=== PATIENT | female | born 1975 | race Caucasian/White ===

== ENCOUNTER 2018-03-09 06:32 | Day surgery (SDC) | payer OTHER, SELFPAY ==
[2018-02-19 14:48] VITALS: BMI 28.1
[2018-03-09] VITALS (10 sets, daily range): BP systolic 99–126; BP diastolic 67–84; PULSE 68–89; RESP 10–18; TEMP 36–36.6; O2SAT 95–100; BMI 28.1
--- NOTE | 2018-03-09 | PATH_ITS ---
[facility] Accession Number: [id number] . 01 Material submitted: . RIGHT FALLOPIAN TUBE . 02 Diagnosis: Right Fallopian Tube, Right Salpingectomy: Segment of fimbriated fallopian tube with associated adhesions, nonspecific. Negative for atypia and malignancy. MRV/03/14/2018 . 02 Electronically signed: . Landy Flores MD, Pathologist NPI- [id number] . 01 Gross description: . Received in formalin, labeled right fallopian tube, is a fimbriated fallopian tube (length-2.8 cm, diameter-0.6 cm) with calixto-pink smooth shiny serosa and a calixto unremarkable lumen. Section code: (A1) liability claims representative serial sections; (A2) fimbria, bivalved, entirely submitted. ([id number]) /MRV . 02 Pathologist provided ICD-10: Z40.03 . 02 CPT . 889279 Performed at: 01 [facility] [address] [facility], [place], [place] [id number] MD Darius Yarbrough MD Phone: [phone] Performed at: 02 [facility] [address] [place], [place] [id number] MD Saurav Ma MD Phone: [phone]
[2018-03-09] MEDS: LACTATED RINGERS 1,000 ML 42 ML IV (07:45)
--- NOTE | 2018-03-09 07:45 | PM.PREOP ---
Pre-operative Note Interval Note Pre-op Check: Yes History & Physical exam performed today by Physician Changes: No
[2018-03-09] MEDS: CEFAZOLIN 2 GM/100 ML FROZ.PIGGY IV (07:50)
--- NOTE | 2018-03-09 08:12 | SUR.OPER ---
Lithotomy on padded OR bed, head on pillow, right arm secured on padded arm boards at <90 degrees abduction, left arm padded and tucked. Legs secured in padded yellow fins stirrups.
[2018-03-09] MEDS: BUPIVACAINE 0.5% W/ EPI (PF) VIAL 30 ML INJ (08:30)
[2018-03-09] MEDS: SODIUM CHLORIDE 0.9% 9 ML, TRIAMCINOLONE 10 MG INJ (08:31)
--- NOTE | 2018-03-09 09:24 | P.OP_ITS ---
Procedure: Procedures Operation Date: 03/09/18 07:45 Actual Procedures Side Surgeon p Dx Laparoscopy-,Lysis of Adhesions-Revision of Keliod Scar-Right Salpingectomy Caroline Acosta MD Diagnostic laparoscopy with lysis of adhesions, right salpingectomy and revision of keloid scar Indications: History of endometriosis Pelvic pain Surgeon: Caroline Acosta Anesthesia Type: General and Local Operative Notes Findings: Uterus absent Right ovary and tube normal Normal appendix Normal gallbladder and liver Left ovary and tube could not be visualized due to overlying: Adhesion between the left colon and vaginal cuff Closure Type: primary Specimen(s): right tube Applied: catheter (In and out) Estimated blood loss (mL): 20 Blood products transfused: none Procedure in detail: After informed consent was obtained, the patient was taken to the operating room where she was placed in the dorsal supine position. After adequate general endotracheal anesthesia was achieved, she was placed in the dorsal lithotomy position, and prepped and draped in the usual sterile fashion. A moistened sponge stick was placed into the vagina. Attention was then turned to the abdomen where 6 cc of 0.5% Marcaine with epinephrine were injected in the umbilical fold. A 5 mm incision was made. The Veress needle was placed into the peritoneal cavity, and its placement confirmed by aspiration and drop test. The abdominal cavity was insufflated with 3.2 L of CO2. The Veress needle was removed and a 5 mm trocar was placed without difficulty. Initial inspection of the abdomen and pelvis revealed the findings noted above. A 2nd incision was made after 5 cc of 0.5% Marcaine with epinephrine were injected just above the pubic symphysis, through the previous Pfannenstiel incision. A 5 mm trocar was placed under direct visualization. The probe was used to identify the right tube and ovary. They both appeared normal. The appendix was normal. Gallbladder and liver were normal. A 3rd incision was made to the right of midline midway between the pubic symphysis number like us after 6 cc of 0.5% Marcaine with epinephrine were injected. A 3rd 5 mm trocar was placed under direct visualization. The probe was used to move the colon out of the way and the left tube and ovary were unable to be visualized. The colon that was stuck to the vaginal cuff was grasped with an atraumatic grasper. Using the scissors with cautery it was dissected away from the vaginal cuff. No bleeding was noted. The right tube was grasped with an atraumatic grasper. Using the scissors with cautery the tube was removed without difficulty. No bleeding was noted. The tube was removed through 1 of the 5 mm trocars. The pelvis and right ovary were irrigated. There was no bleeding noted. The instruments were removed from the abdomen. The CO2 was allowed to escape. The 5 mm trocars were removed. The right lateral and umbilical incisions were closed with 4 0 undyed Vicryl in a subcuticular fashion. Steri-Strips, 2 x 2, and op sites were placed. Attention was then turned to the old Pfannenstiel incision with a keloid. This was excised in an elliptical fashion using a 10. Blade. 10 cc of local were injected prior to the excision. This was carried down to the subcutaneous layer. The subcutaneous layer was cauterized with the Bovie for hemostasis. The incision was copiously irrigated with warm normal saline. The subcutaneous layer was reapproximated with 8 simple interrupted sutures with 3 0 Vicryl. The skin was closed with 4 0 undyed Vicryl in a subcuticular fashion. Mastisol, Steri-Strips , and an Aquacel dressing were placed. The moistened sponge stick was removed from the vagina. Sponge, lap, and instrument counts were correct x2. The patient tolerated the procedure well, and was taken to PACU in stable condition. Complications: none Post-operative Condition: stable Disposition: PACU Plan for aftercare: Home after recovery
--- NOTE | 2018-03-09 09:33 | SUR.PHASEI ---
Two additional dressings on abd observed to be c/d/i.
[2018-03-09] MEDS: ONDANSETRON 4 MG/2 ML INJ IV (10:07)
[2018-03-09] MEDS: METOCLOPRAMIDE 10 MG/2 ML INJ IV (10:20)
== END 2018-03-09 11:40 | disposition home or self-care (01) ==
PROVIDERS: PCP Nurse Practitioner; Visit Provider Obstetrics & Gynecology
PROC: (CPT 49320; principal; 2018-03-09 07:45)
DX: N80.9 Endometriosis, unspecified (principal); Z87.42 Personal history of other diseases of the female genital tract; L91.0 Hypertrophic scar; K66.0 Peritoneal adhesions (postprocedural) (postinfection)
CPT/HCPCS: 58661; 11406; J0330; J0690; J1100; J1885; J2250; J2405; J2704; J2765; J3010; J3301

== ENCOUNTER → 2018-03-29 16:02 | Outpatient (CLI) | payer OTHER, SELFPAY | PROVIDERS: PCP Nurse Practitioner; Visit Provider Specialist | DX: T81.89XA Other complications of procedures, not elsewhere classified, initial encounter (principal) | CPT/HCPCS: 87070; 87075; 87077; 87147; 87186; 87205 ==

== ENCOUNTER → 2020-04-12 09:54 | Outpatient (CLI) | payer OTHER, SELFPAY ==
[2020-04-13 09:41] LABS: COVID19 Sendout Not Detected (Not Detect)
== END ==
PROVIDERS: PCP Nurse Practitioner; Visit Provider Nurse Practitioner
DX: Z11.59 Encounter for screening for other viral diseases (principal)
CPT/HCPCS: 87635

== ENCOUNTER 2020-04-15 09:50 | Day surgery (SDC) | payer OTHER, SELFPAY ==
--- NOTE | 2020-04-15 | PATH_ITS ---
[facility] Accession Number: [id number] . 01 Material submitted: . PART A: small bowel - TERMINAL ILEUM BX PART B: colon - R COLON BX X3 PART C: colon - L COLON BX X3 . 02 Diagnosis: A. Terminal Ileum, Biopsy: Small bowel mucosa with no diagnostic abnormality. Negative for active inflammation, dysplasia and malignancy. . B-C. Right Colon, Left Colon, Biopsies: Colonic mucosa with no diagnostic abnormality. Negative for active, chronic, and microscopic colitis. Negative for dysplasia and malignancy. . [facility] 04/17/2020 1633 Local . 02 Electronically signed: . Patrizia Tang MD, Pathologist NPI- [id number] . 01 Gross description: . Part A: TERMINAL ILEUM BX: Received in formalin are 2 fragment(s) of calixto, soft tissue measuring 0.7 x 0.2 x 0.1 cm to 0.3 x 0.2 x 0.1 cm submitted entirely in 1 cassette(s) Part B: R COLON BX X3: Received in formalin are 5 fragment(s) of calixto, soft tissue measuring 0.5 x 0.5 x 0.1 cm to 0.2 x 0.1 x 0.2 cm submitted entirely in 1 cassette(s) Part C: L COLON BX X3: Received in formalin are 6 fragment(s) of calixto, soft tissue measuring 0.4 x 0.3 x 0.2 cm to 0.3 x 0.2 x 0.1 cm submitted entirely in 1 cassette(s) /QBJ 04/16/2020 1005 Local . 02 Pathologist provided ICD-10: R10.9 . 02 CPT . 053082, 285468, 514870 Performed at: 01 [facility] [address] [place] [address], [place], [place] [id number] MD Darius Yarbrough MD Phone: [phone] Performed at: 02 [facility] [address] [place], [place] [id number] MD Patrizia Tang MD Phone: [phone]
--- NOTE | 2020-04-15 08:00 | PM.HP.1 ---
History of Present Illness History of Present Illness Date Patient Seen: 04/15/20 Chief complaint: COLONOSCOPY Narrative: 45-year-old female with a history of celiac disease who I had seen in February 2020 and is now here for further evaluation of changes in bowel habit. Patient History Medical History (Updated 02/19/18 @ 14:52 by Emily Dukes RN) Endometriosis (Acute ~2007) Keloid scar (Acute) Surgical History (Updated 03/16/18 @ 15:55 by Briana Goldsmith MA) H/O: (Acute) History of bilateral tubal ligation (Acute) History of hysterectomy (Acute ~2009) S/P laparoscopic procedure (Resolved ~03/09/18) Family & Social History Social History: household members spouse Tobacco & Substance use: Smoking Status Never smoker Meds Home Medications and Allergies Home Medications Medication Instructions Recorded Confirmed Type ferrous sulfate 325 mg (65 mg 325 mg PO DAILY tab 02/07/18 04/16/18 History iron) tablet loratadine 5 mg/5 mL oral solution 5 mg PO ONCE 02/07/18 04/16/18 History omeprazole 40 mg capsule,delayed 40 mg PO DAILY 02/07/18 04/16/18 History release CMP PracaSil See Rx Instructions .ROUTE 05/02/18 Rx .COMPLEX #100 gram Allergies Allergy/AdvReac Type Severity Reaction Status Date / Time Sulfa (Sulfonamide Allergy Intermediate Hives Verified 04/15/20 10:08 Antibiotics) fluticasone [From Flonase] Allergy Verified 04/15/20 10:08 terbutaline Allergy Verified 04/15/20 10:08 morphine AdvReac Mild Rash Verified 04/15/20 10:08 Exam Narrative Exam Narrative: General: Patient is well developed, not in apparent distress Cardiovascular: Regular rate and rhythm, no murmurs, rubs, or gallops; no evidence of edema; no palpable abdominal aortic aneurysm Gastrointestinal: Normoactive bowel sounds, soft, nontender, nondistended, no rebound tenderness, no hepatosplenomegaly, no evidence of hernia Assessment & Plan Assessment & Plan narrative: 45-year-old female with here for further evaluation of changes in bowel habits by means of colonoscopy Regarding the procedure(s), the risks and potential complications, benefits, and alternatives (including not doing the procedure) were discussed with the patient. The risks include but are not limited to bleeding, splenic injury, infection, perforation which may require surgical intervention, missed lesions, and adverse reactions to sedative medicines. After a question and answer period, the patient agreed to proceed with the procedure(s) and gives informed consent.
[2020-04-15] MEDS: SODIUM CHLORIDE 0.9% 1,000 ML 70 ML IV (10:09)
[2020-04-15 10:11] VITALS: BP 123/70; PULSE 90; RESP 16; TEMP 37; O2SAT 100; BMI 25.5
--- NOTE | 2020-04-15 10:40 | PM.OP.ENDO ---
Operative Date/Time/Diagnoses Date of procedure: 04/15/20 Procedure Notes Procedure in detail: Surgeon: Torres Britton MD Procedure: Colonoscopy with biopsy Preoperative diagnosis: Change in bowel habits Postoperative diagnosis: Normal visualized colon and terminal ileum mucosa; grade 1 internal hemorrhoids Medications: Conscious sedation using 7 mg IV of Midazolam and 150 mcg IV of Fentanyl Preanesthesia Assessment An H and P was performed/updated and the Px?s ASA class is 2. The procedure was discussed in detail with the patient. The potential risks and complications including infection, bleeding, missed lesions, perforation, need for surgery in case of perforation, prolonged hospital stay, and were explained. A brief question and answer period was allotted and once all questions were answered, informed consent was obtained. The patient was brought back to the procedure room and placed on standard monitoring. The patient?s vital signs were monitored continuously throughout the entire procedure. Prior to starting, a timeout was performed to confirm the patient?s identity, allergies, medications, and procedure. Procedure in detail The patient was placed in left lateral decubitus position and once adequate sedation was obtained a WARREN was performed. The digital rectal examination did not reveal any palpable lesions. The tip of the colonoscope was placed in the anal canal and advanced without difficulty all the way to the cecum which was identified by the appendiceal orifice and the ileocecal valve. The terminal ileum was intubated to a distance of 5 cm from the ileocecal bowel. The mucosa appeared normal. Biopsies were taken with minimal bleeding. The colonoscope was brought back to the cecum and careful examination of all olivares of the colon was performed with irrigation of any residual stool. The colonic mucosa appeared normal throughout the entire colon. Biopsies were taken from the right and left colon to rule out microscopic colitis. Bleeding was minimal from the biopsies Retroflexion was performed in the rectum which revealed grade 1 internal hemorrhoids The patient tolerated the procedure well and will be brought back to the recovery area to be discharged once criteria are met. The prep was judged to be good and adequate to identify polyps less than 5 mm. The withdrawal time was 8 minutes. The total physician intraservice time was 14 minutes. Complications There were no complications and estimated blood loss was minimal. Recommendations: Consider starting FODMAP diet Change probiotics to a different bacteria preparation and continue daily for 1-2 months Consider starting Citrucel powder daily if the FODMAP diet and probiotics do not improve her symptoms Continue outPx medications Follow up pathology results Repeat colonoscopy at age 50 for colon cancer screening Call our office ([facility]) to schedule follow-up with me in 2 months An emergency contact number was given to the patient for any complications related to the procedure
[2020-04-15] MEDS: MIDAZOLAM 5 MG/5 ML VIAL IV (10:46)
[2020-04-15] MEDS: fentaNYL 250 MCG/5 ML INJ IV (10:46)
[2020-04-15 11:05] VITALS: BP 114/60; PULSE 88; RESP 13; TEMP 36.6; O2SAT 95
[2020-04-15 11:11] VITALS: BP 112/61; PULSE 83; RESP 11; O2SAT 97
[2020-04-15 11:15] VITALS: BP 121/77; PULSE 81; RESP 11; O2SAT 100
[2020-04-15 11:20] VITALS: BP 117/69; PULSE 78; RESP 12; TEMP 36.8; O2SAT 100
--- NOTE | 2020-04-15 11:26 | SUR.PHASEI ---
Report to Ernst Greene, pt transferred to pacu 2 in stable condition
[2020-04-15 11:30] VITALS: BP 121/70; PULSE 90; RESP 16; TEMP 36.7; O2SAT 98
== END 2020-04-15 11:51 | disposition home or self-care (01) ==
PROVIDERS: PCP Nurse Practitioner; Referring Provider Internal Medicine Gastroenterology; Visit Provider Internal Medicine Gastroenterology
PROC: 0DJD8ZZ Inspection of Lower Intestinal Tract, Via Natural or Artificial Opening Endoscopic (ICD-10-PCS; CPT 45378; principal; 2020-04-15 11:00)
DX: R19.4 Change in bowel habit (principal); K90.0 Celiac disease; K64.0 First degree hemorrhoids
CPT/HCPCS: 45380; J2250; J3010

== ENCOUNTER 2021-09-17 18:31 | Emergency (ER) | payer OTHER, SELFPAY ==
[2021-09-17 18:38] VITALS: BP 121/59; PULSE 91; RESP 18; TEMP 36.9; O2SAT 96; BMI 24.0
[2021-09-17 19:29] LABS: Add Manual Diff / Slide Review NO; Basophils Absolute Auto 100 /uL (0-100); Eosinophils Absolute Auto 0 /uL (0-450); Eosinophils Percent Auto 0.4 % (2-4); Hematocrit 45.7 % (36-46); Hemoglobin 15.2 g/dL (12.0-16.0); Lymphocytes Absolute Auto 1800 /uL (1100-4500); Lymphocytes Percent Auto 15.6 % (25-40); Mean Corpuscular HGB Conc 33.3 % (30-36); Mean Corpuscular Hemoglobin 29.1 PG (26-34); Mean Corpuscular Volume 87.4 fL (80-100); Monocytes Absolute Auto 700 /uL (0-900); Monocytes Percent Auto 6.3 % (3-14); Neutrophils Absolute Auto 8800 /uL (1500-7000); Neutrophils Percent Auto 76.7 % (50-75); Platelet Count 238 X10^3/uL (150-400); Red Blood Cell Count 5.23 X10^6/uL (4.0-5.2); Red Cell Distribution Width 12.9 % (11.6-14.8); White Blood Cell Count 11.4 X10^3/uL (4.5-11.0)
--- NOTE | 2021-09-17 19:36 | ED_ITS ---
HPI - General Adult General Chief complaint: Abdominal Pain Stated complaint: Diverticulitis Time Seen by Provider: 09/17/21 19:22 Source: patient Mode of arrival: Ambulatory History of Present Illness HPI narrative: Patient is a 46-year-old female. She has had a total hysterectomy secondary to endometriosis. Over the past 24-36 hours she has developed lower abdominal discomfort. She describes it as both sides but more so on the right than the left. Some nausea but no vomiting. No fevers. She has had urinary tract infections and kidney infections in the past. She went to an outside walk-in clinic where she was evaluated. A urinalysis was performed and was reported to be unremarkable. She was sent to the emergency department for further diagnostic imaging secondary to lack of definitive etiology with a workup up to this point. She did receive Toradol prior to arrival. Upon arrival she states that her symptoms have improved after that medication. She denies urinary symptoms. No change in bowel habits. Related Data Home Medications Medication Instructions Recorded Confirmed ferrous sulfate 325 mg (65 mg 325 mg PO DAILY tab 02/07/18 04/16/18 iron) tablet (Feosol) loratadine 5 mg/5 mL oral solution 5 mg PO ONCE 02/07/18 04/16/18 (Claritin) omeprazole 40 mg capsule,delayed 40 mg PO DAILY 02/07/18 04/16/18 release Previous Rx's Medication Instructions Recorded CMP PracaSil See Rx Instructions .ROUTE 05/02/18 .COMPLEX #100 gram Allergies Allergy/AdvReac Type Severity Reaction Status Date / Time Sulfa (Sulfonamide Allergy Intermediate Hives Verified 09/17/21 18:46 Antibiotics) fluticasone [From Flonase] Allergy Verified 09/17/21 18:46 terbutaline Allergy Verified 09/17/21 18:46 morphine AdvReac Mild Rash Verified 09/17/21 18:46 Review of Systems Constitutional Constitutional: Denies fever(s) Cardiovascular Cardiovascular: Denies chest pain and Denies dyspnea Respiratory Respiratory: Denies dyspnea Gastrointestinal Gastrointestinal: Reports abdominal pain, Denies change in bowel habits, Reports nausea and Denies vomiting Genitourinary Genitourinary: Denies dysuria Musculoskeletal Musculoskeletal: Reports system reviewed and no additional complaints, except as documented Integumentary/Breasts Skin/Breast: Reports system reviewed and no additional complaints, except as documented Hematologic/Lymphatic On Anticoagulants: No Patient History Medical History Endometriosis (~2007) Keloid scar Surgical History H/O: History of bilateral tubal ligation History of hysterectomy (~2009) S/P laparoscopic procedure (~03/09/18) Social History household members: spouse Smoking Status: Never smoker Smoking Status: Never smoker alcohol intake frequency: holidays/special occasions only Substance Use Type: does not use Exam Initial Vital Signs Initial Vital Signs: Vital Signs Temperature 98.4 F 09/17/21 18:38 Pulse Rate 91 H 09/17/21 18:38 Respiratory Rate 18 09/17/21 18:38 Blood Pressure 121/59 L 09/17/21 18:38 Pulse Oximetry 96 09/17/21 18:38 Const General: cooperative and healthy appearing HENMT Head: normal to inspection and normocephalic Resp Effort & Inspection: normal respiratory effort Auscultation: clear to auscultation bilaterally Cardio Rate: regular rate Rhythm: regular rhythm GI Inspection: normal to inspection and non-distended Palpation: soft, No firm, No guarding, No rigid and tender Back/Spine/Pelvis Back: No CVA tenderness Skin General: no rashes or lesions noted Neuro General: patient alert, patient awake, patient oriented x3 and moves all extremities Speech: speech normal Extrem General: normal to inspection and capillary refill normal Psych Appearance: grossly normal and well kempt Course Orders Ordered: ED Orders 09/17/21 19:37 CT abdomen pelvis w con Stat 09/17/21 20:54 US pelvic complete Stat Discontinued Medications Sodium Chloride (Normal Saline 0.9%) 1,000 mls @ 1,000 mls/hr IV BOLUS ONE Stop: 09/17/21 20:36 Last Admin: 09/17/21 20:22 Dose: 1,000 mls/hr Documented by: NESSA Vital Signs Vital signs: Vital Signs - 8 hr 09/17/21 22:43 09/17/21 22:44 Pulse Rate 65 66 Respiratory Rate 16 Blood Pressure 122/66 Pulse Oximetry 99 99 Medical Decision Making Lab Data Lab results reviewed: Yes I reviewed the patient's lab results. Result diagrams: 09/17/21 19:03 09/17/21 19:03 Labs: Lab Results 09/17/21 09/17/21 Range/Units 19:03 19:03 WBC 11.4 H (4.5-11.0) X10^3/uL RBC 5.23 H (4.0-5.2) X10^6/uL Hgb 15.2 (12.0-16.0) g/dL Hct 45.7 (36-46) % MCV 87.4 (80-100) fL MCH 29.1 (26-34) PG MCHC 33.3 (30-36) % RDW 12.9 (11.6-14.8) % Plt Count 238 (150-400) X10^3/uL Neut % (Auto) 76.7 H (50-75) % Lymph % (Auto) 15.6 L (25-40) % Campbell % (Auto) 6.3 (3-14) % Eos % (Auto) 0.4 L (2-4) % Baso % (Auto) 1.0 (0-2) % Neut # (Auto) 8800 H (5279-4294) /uL Lymph # (Auto) 1800 (0755-6841) /uL Campbell # (Auto) 700 (0-900) /uL Eos # (Auto) 0 (0-450) /uL Baso # (Auto) 100 (0-100) /uL Sodium 135 L (137-145) mmol/L Potassium 3.6 (3.4-5.1) mmol/L Chloride 104 (98-107) mmol/L Carbon Dioxide 26 (22-32) mmol/L BUN 12 (7-17) mg/dL Creatinine 0.94 (0.52-1.04) mg/dL Estimated GFR > 60.0 (>60) mL/min BUN/Creatinine Ratio 12.8 (6-22) Glucose 107 H (70-100) mg/dL Calcium 9.2 (8.4-10.2) mg/dL Total Bilirubin 0.8 (0.2-1.3) mg/dL AST 27 (14-36) IU/L ALT 28 (<35) IU/L Alkaline Phosphatase 72 (38-126) U/L Total Protein 7.0 (6.3-8.2) g/dL Albumin 4.3 (3.5-5.0) g/dL Globulin 2.7 (1.7-4.1) g/dL Albumin/Globulin Ratio 1.6 (1.0-2.8) Lipase 101 (23-300) U/L Point of Care Testing Test Results Negative Urine Dip Bedside Urine Glucose Negative Bedside Urine Bilirubin - Negative Bedside Urine Ketone - Negative Urine Specific Girard 1.015 Bedside Urine Occult Blood - Negative Bedside Urine pH 6.2 Bedside Urine Protein - Negative Bedside Urine Urobilinogen - Negative Bedside Urine Nitrite - Negative Bedside Urine Leukocytes - Negative Esterase Point of care testing: Point of Care Testing Test Results Negative Urine Dip Bedside Urine Glucose Negative Bedside Urine Bilirubin - Negative Bedside Urine Ketone - Negative Urine Specific Girard 1.015 Bedside Urine Occult Blood - Negative Bedside Urine pH 6.2 Bedside Urine Protein - Negative Bedside Urine Urobilinogen - Negative Bedside Urine Nitrite - Negative Bedside Urine Leukocytes - Negative Esterase Imaging Data CT scan - abdomen/pelvis: Radiologist's Impression: [address] [address] [address] Scan Report Signed Patient: Erika Rebolledo MR#: [id number] : 1975 Acct:[id number] Age/Sex: 46 / F Date of Service: 09/17/21 Loc: ED Accession Number: [id number] ?? Procedure: CT abdomen pelvis w con Ordering Provider: Omar Vinson D.O. PROCEDURE:? CT ABDOMEN PELVIS W CON ? INDICATIONS:? Left-sided abdominal pain ? TECHNIQUE:? After the administration of intravenous contrast, axial sections acquired from the lung bases to the pubic symphysis.? Coronal and sagittal reformats were performed.? For radiation dose reduction, the following was used:? automated exposure control, adjustment of mA and/or kV according to patient size.? ? COMPARISON:? None. ? FINDINGS:? Image quality:? Excellent.? ? Lung bases:? Unremarkable. Heart:? No significant findings. ? ABDOMEN: Liver:? Unremarkable.? ? Gallbladder:? Unremarkable.? ? Biliary ducts:? Unremarkable.? ? Pancreas:? Unremarkable.? ? Spleen:? Benign-appearing low-density focus within the medial spleen measuring 7 mm. Adrenal Glands:? Unremarkable.? ? Kidneys and Ureters:? Unremarkable.? ? ? Stomach and Bowel:? Stomach, small bowel loops, and colon are unremarkable.? Normal appendix. Peritoneum:? Small amount of free fluid within the pelvis, within physiological limits in a menstruating female.? No free air.? ? Ventral Wall: ? No hernias.? Abdominal Nodes:? No retroperitoneal or mesenteric adenopathy by size criteria.? Vessels:? Aorta and inferior vena cava are normal in size.? ? PELVIS: Pelvic Organs:? Uterus is eccentric to the right hemipelvis. Bladder:? Unremarkable.? ? Pelvic Nodes: No enlarged lymph nodes.? Miscellaneous: No hernias are seen. ? ? ? Bones:? Unremarkable.? IMPRESSION:? 1. Small amount of free fluid within the pelvis, within physiological limits in a menstruating female. 2. Normal appendix.? ? ? Dictated by: Марина Hilton M.D. on 09/17/2021 at 20:32 ? ? Approved by: Марина Hilton M.D. on 09/17/2021 at 20:34 US - FIELD SERVICE COORDINATOR: Radiologist's Impression: [place] [address] Ultrasound Report Signed Patient: Erika Rebolledo MR#: [id number] : 1975 Acct:[id number] Age/Sex: 46 / F Date of Service: 09/17/21 Loc: ED Accession Number: [id number] ?? Procedure: US pelvic complete Ordering Provider: Omar Vinson D.O. PROCEDURE:? US PELVIC COMPLETE ? INDICATIONS:? EVALFOR TORSION ? TECHNIQUE:? Real-time scanning was performed of the pelvic organs, with image documentation.? Additional endovaginal scanning was necessary due to incomplete visualization of the adnexal and endometrial structures by transabdominal scanning.? ? COMPARISON:? None. ? FINDINGS:? ?? Uterus:? Uterus is surgically absent . ? Ovaries:? Right ovary measures 60 mm x 30 mm x 30 mm, which demonstrates multiple complex internal regions of echogenicity.? No blood flow seen to the right ovary.? Left ovary is within normal limits measuring 34 mm. ? Other:? Complex fluid in the right adnexal region. ? ? IMPRESSION:? 1. Enlarged abnormal appearing right ovary without evidence of internal blood flow, suggestive of torsion in the appropriate clinical setting.? Follow-up imaging is recommended to exclude underlying neoplasm. 2. Normal appearing left ovary.? ? ? We strive to produce accurate, complete, and clear reports of imaging services. To assist us in improving patient care, this report was composed using standard report templates and voice recognition software. Therefore, it may contain abnormal punctuation, insertions and/or omissions. Occasional wrong-word or sound-alike substitutions may occur. Though we review the report and make efforts to correct it, we do recommend that the report be read carefully in proper context to recognize any text inaccuracies. ? ? Dictated by: Марина Hilton M.D. on 09/17/2021 at 21:51 ? ? Approved by: Марина Hilton M.D. on 09/17/2021 at 21:53?? MDM Narrative Medical decision making narrative: Patient does have tenderness in her lower abdomen with a relatively benign exam. No rebound. No guarding. Her labs unremarkable. Urinalysis performed at outside facility is unremarkable. Low suspicion for urinary tract infection or pyelonephritis. Patient has had a hysterectomy. CT scan shows normal appendix. No signs of kidney stones. No signs of bowel obstructions. It mentions uterus on the CT scan but this is surgically absent per the patient's report. Ultrasound of the abdomen does show concerned about pathology to the right ovary which is most likely what was identified is the uterus on the CT scan. It does indicate concern about ovarian torsion. Patient states that her discomfort has greatly improved after the Toradol shot she received at the outside facility. I did discuss the case with Dr. Lane who is on-call for marzipan maker. He stated that he did evaluate the ultrasound. He feels that torsion is less likely based on the patient's clinical presentation and the findings of the ultrasound. He recommended discharge home. He took the patient's contact information and will contact the patient in the morning to follow-up. If her symptoms change or there is concern about this potentially being torsion he will advised the patient return for potential surgical intervention. He also provided his cell phone number so that if the patient's symptoms worsened overnight she could c ontact him. I did discuss with her all of this. We did discuss the CT scan findings and also the ultrasound findings. We did discuss the concern about ovarian pathology an ovarian torsion and with this could potentially mean. She did receive Dr. Lane's cell phone number. She was also informed that if her symptoms worsen that she needs to return to the emergency department immediately for further evaluation and treatment. She expressed understanding and agreement. She declined offer for pain medication which I feel is appropriate as we do not want to mask worsening pain. She expressed understanding agreement with plan. Discharge Plan Departure Patient Disposition: Home Clinical Impression: Abdominal pain Instructions: DI for Abdominal Pain-Adult Activity Restrictions/Additional Instructions: The ultrasound today does show concern about an issue with your right ovary. I did discuss the case with Dr. Lane who was on-call for jewelry estimator. He is going to be contacting you in the morning. I did provide him with your contact information. He wants to follow-up to see how your discomfort has been progressing/improving since this evening. Expect a call from him between 7 and 8 AM. Until then if your symptoms worsen overnight you can contact him at [phone]. If your symptoms continue to worsen please return to the emergency department for any new or worsening symptoms. Prescriptions: No Action CMP PracaSil See Rx Instructions .ROUTE .COMPLEX Qty: 100 0RF Rx Instructions: Apply small amount to scar every day for 3-6 months [facility] loratadine [Claritin] 5 mg/5 mL solution 5 mg PO ONCE 0RF omeprazole 40 mg capsule,delayed release(DR/EC) 40 mg PO DAILY 0RF ferrous sulfate [Feosol] 325 mg (65 mg iron) tablet 325 mg PO DAILY 0RF
--- NOTE | 2021-09-17 19:37 | DI.CT.S_ITS ---
PROCEDURE: CT ABDOMEN PELVIS W CON INDICATIONS: Left-sided abdominal pain TECHNIQUE: After the administration of intravenous contrast, axial sections acquired from the lung bases to the pubic symphysis. Coronal and sagittal reformats were performed. For radiation dose reduction, the following was used: automated exposure control, adjustment of mA and/or kV according to patient size. COMPARISON: None. FINDINGS: Image quality: Excellent. Lung bases: Unremarkable. Heart: No significant findings. ABDOMEN: Liver: Unremarkable. Gallbladder: Unremarkable. Biliary ducts: Unremarkable. Pancreas: Unremarkable. Spleen: Benign-appearing low-density focus within the medial spleen measuring 7 mm. Adrenal Glands: Unremarkable. Kidneys and Ureters: Unremarkable. Stomach and Bowel: Stomach, small bowel loops, and colon are unremarkable. Normal appendix. Peritoneum: Small amount of free fluid within the pelvis, within physiological limits in a menstruating female. No free air. Ventral Wall: No hernias. Abdominal Nodes: No retroperitoneal or mesenteric adenopathy by size criteria. Vessels: Aorta and inferior vena cava are normal in size. PELVIS: Pelvic Organs: Uterus is eccentric to the right hemipelvis. Bladder: Unremarkable. Pelvic Nodes: No enlarged lymph nodes. Miscellaneous: No hernias are seen. Bones: Unremarkable. IMPRESSION: 1. Small amount of free fluid within the pelvis, within physiological limits in a menstruating female. 2. Normal appendix. Dictated by: Марина Hilton M.D. on 09/17/2021 at 20:32 Approved by: Марина Hilton M.D. on 09/17/2021 at 20:34
[2021-09-17 19:42] LABS: Alanine Aminotransferase 28 IU/L (<35); Albumin 4.3 g/dL (3.5-5.0); Albumin Globulin Ratio 1.6 (1.0-2.8); Alkaline Phosphatase 72 U/L (38-126); Aspartate Aminotransferase 27 IU/L (14-36); BUN Creatinine Ratio 12.8 (6-22); Bilirubin Total 0.8 mg/dL (0.2-1.3); Blood Urea Nitrogen 12 mg/dL (7-17); Calcium 9.2 mg/dL (8.4-10.2); Carbon Dioxide 26 mmol/L (22-32); Chloride 104 mmol/L (98-107); Estimated Glomerular Filt Rate > 60.0 mL/min (>60); Globulin 2.7 g/dL (1.7-4.1); Glucose 107 mg/dL (70-100); HEMOLYSIS 28 (0-50); Lipase 101 U/L (23-300); Potassium 3.6 mmol/L (3.4-5.1); Sodium 135 mmol/L (137-145)
[2021-09-17] MEDS: SODIUM CHLORIDE 0.9% 1,000 ML 1000 ML IV (20:22)
[2021-09-17 20:29] VITALS: BP 129/67; PULSE 68; RESP 18; O2SAT 99
--- NOTE | 2021-09-17 20:54 | DI.US.S_ITS ---
PROCEDURE: US PELVIC COMPLETE INDICATIONS: EVALFOR TORSION TECHNIQUE: Real-time scanning was performed of the pelvic organs, with image documentation. Additional endovaginal scanning was necessary due to incomplete visualization of the adnexal and endometrial structures by transabdominal scanning. COMPARISON: None. FINDINGS: Uterus: Uterus is surgically absent . Ovaries: Right ovary measures 60 mm x 30 mm x 30 mm, which demonstrates multiple complex internal regions of echogenicity. No blood flow seen to the right ovary. Left ovary is within normal limits measuring 34 mm. Other: Complex fluid in the right adnexal region. IMPRESSION: 1. Enlarged abnormal appearing right ovary without evidence of internal blood flow, suggestive of torsion in the appropriate clinical setting. Follow-up imaging is recommended to exclude underlying neoplasm. 2. Normal appearing left ovary. We strive to produce accurate, complete, and clear reports of imaging services. To assist us in improving patient care, this report was composed using standard report templates and voice recognition software. Therefore, it may contain abnormal punctuation, insertions and/or omissions. Occasional wrong-word or sound-alike substitutions may occur. Though we review the report and make efforts to correct it, we do recommend that the report be read carefully in proper context to recognize any text inaccuracies. Dictated by: Марина Hilton M.D. on 09/17/2021 at 21:51 Approved by: Марина Hilton M.D. on 09/17/2021 at 21:53
[2021-09-17 22:43] VITALS: PULSE 65; O2SAT 99
[2021-09-17 22:44] VITALS: BP 122/66; PULSE 66; RESP 16; O2SAT 99
== END 2021-09-17 22:48 | disposition home or self-care (01) ==
PROVIDERS: Emergency Provider Emergency Medicine
DX: R10.31 Right lower quadrant pain (principal); R10.32 Left lower quadrant pain
CPT/HCPCS: 36415; 74177; 76830; 76856; 80053; 81003; 81025; 83690; 85025; 99284; Q9967

== ENCOUNTER → 2021-09-21 16:30 | Outpatient (CLI) | payer OTHER, SELFPAY ==
[2021-09-21 18:32] LABS: Lactate Dehydrogenase 391 U/L (313-618)
[2021-09-21 18:50] LABS: HCG Quantitative /Beta subunit < 2.4 mIU/mL
[2021-09-21 19:05] LABS: Cancer Antigen 125 6.3 U/mL (0-35); Carcinoembryonic Antigen 0.4 ng/mL (0.1-3.0)
[2021-09-22 06:15] LABS: Alpha Fetoprotein 5.6 ng/mL (0.0-6.4)
[2021-09-23 12:32] LABS: Inhibin B 116.3 pg/mL (.)
== END ==
PROVIDERS: Referring Provider Obstetrics & Gynecology; Visit Provider Obstetrics & Gynecology
DX: N83.8 Other noninflammatory disorders of ovary, fallopian tube and broad ligament (principal)
CPT/HCPCS: 36415; 82105; 82378; 83520; 83615; 84702; 86304

== ENCOUNTER → 2021-11-10 09:11 | Outpatient (CLI) | payer OTHER, SELFPAY ==
--- NOTE | 2021-11-10 09:13 | DI.US.S_ITS ---
PROCEDURE: US PELVIC COMPLETE INDICATIONS: RT ADNEXAL MASS NOTED ON 09/17/2021 TECHNIQUE: Real-time scanning was performed of the pelvic organs, with image documentation. Additional endovaginal scanning was necessary due to incomplete visualization of the adnexal and endometrial structures by transabdominal scanning. COMPARISON: [facility], , US PELVIC COMPLETE, 09/17/2021, 21:13. FINDINGS: Uterus: Surgically absent Ovaries: The right ovary measures 3.0 x 2.3 x 1.2 cm. The left ovary measures 2.9 x 2.8 x 1.8 cm. There is flow noted in both ovaries by duplex. The previous masslike area in the right ovary has resolved. The right ovary now has a normal appearance. The ovaries have a normal sonographic appearance. Less than 12 follicles can be seen in each ovary. No adnexal masses are seen. Other: No pathologic free abdominal or pelvic fluid. IMPRESSION: Interval resolution of a process involving the right ovary. Normal right ovary. Remote hysterectomy. We strive to produce accurate, complete, and clear reports of imaging services. To assist us in improving patient care, this report was composed using standard report templates and voice recognition software. Therefore, it may contain abnormal punctuation, insertions and/or omissions. Occasional wrong-word or sound-alike substitutions may occur. Though we review the report and make efforts to correct it, we do recommend that the report be read carefully in proper context to recognize any text inaccuracies. Dictated by: Eric Conklin M.D. on 11/10/2021 at 11:48 Approved by: Eric Conklin M.D. on 11/10/2021 at 12:13
== END ==
PROVIDERS: Referring Provider Obstetrics & Gynecology; Visit Provider Obstetrics & Gynecology
DX: N83.8 Other noninflammatory disorders of ovary, fallopian tube and broad ligament (principal)
CPT/HCPCS: 76830; 76856

== ENCOUNTER 2023-03-30 08:52 | Emergency (ER) | payer OTHER, SELFPAY ==
[2023-03-30 09:00] VITALS: BP 135/63; PULSE 79; RESP 18; TEMP 36.7; O2SAT 98; BMI 25.8
--- NOTE | 2023-03-30 09:19 | DI.US.S_ITS ---
PROCEDURE: US PELVIC COMPLETE INDICATIONS: LEFT PELVIC PAIN TECHNIQUE: Real-time scanning was performed of the pelvic organs, with image documentation. Additional endovaginal scanning was necessary due to incomplete visualization of the adnexal and endometrial structures by transabdominal scanning. COMPARISON: [facility], , US PELVIC COMPLETE, 11/10/2021, 9:24. FINDINGS: Uterus: Uterus is surgically absent. No abnormality is seen in vaginal cuff region. Ovaries: The right ovary measures 2.4 x 1.5 x 1.4 cm, with a calculated ovarian volume of 2.7 cc. The left ovary measures 2.1 x 1.2 x 1.1 cm, with a calculated ovarian volume of 1.5 cc. The ovaries have a normal sonographic appearance. Less than 12 follicles can be seen in each ovary. No adnexal masses are seen. Other: No pathologic free abdominal or pelvic fluid. IMPRESSION: 1. Normal appearing bilateral ovaries. No evidence of ovarian torsion. No solid appearing ovarian lesion. 2. Prior hysterectomy. No abnormality is seen in vaginal cuff region. No pelvic free fluid. We strive to produce accurate, complete, and clear reports of imaging services. To assist us in improving patient care, this report was composed using standard report templates and voice recognition software. Therefore, it may contain abnormal punctuation, insertions and/or omissions. Occasional wrong-word or sound-alike substitutions may occur. Though we review the report and make efforts to correct it, we do recommend that the report be read carefully in proper context to recognize any text inaccuracies. Dictated by: Demetri Burgos M.D. on 03/30/2023 at 9:59 Approved by: Demetri Burgos M.D. on 03/30/2023 at 10:01
--- NOTE | 2023-03-30 09:20 | ED.GENADULT ---
HPI - General Adult General Chief complaint: Abdominal Pain Stated complaint: endometrial activity per pt Time Seen by Provider: 03/30/23 08:54 Source: patient Mode of arrival: Ambulatory History of Present Illness HPI narrative: Patient is a 47-year-old female. Has had a hysterectomy secondary to endometriosis. Is here for evaluation of several weeks/months of progressively worsening left-sided adnexal cramping and pain. No vaginal bleeding. She has celiac disease and has had abnormal bowel movements but this is normal for her. No urinary symptoms. No fevers. She has not followed up with environmental service aide since for hysterectomy. Related Data Home Medications Medication Instructions Recorded Confirmed ferrous sulfate 325 mg (65 mg 325 mg PO DAILY 02/07/18 09/21/21 iron) tablet (Feosol) loratadine 5 mg/5 mL oral solution 5 mg PO ONCE 02/07/18 09/21/21 (Claritin) omeprazole 40 mg capsule,delayed 40 mg PO DAILY 02/07/18 09/21/21 release Previous Rx's Medication Instructions Recorded CMP PracaSil See Rx Instructions .Route 05/02/18 .COMPLEX #100 grams hydrocodone 5 mg-acetaminophen 325 1 tab PO Q6H PRN pain #10 tabs 03/30/23 mg tablet Allergies Allergy/AdvReac Type Severity Reaction Status Date / Time Sulfa (Sulfonamide Allergy Intermediate Hives Verified 03/30/23 09:00 Antibiotics) fluticasone [From Flonase] Allergy Verified 03/30/23 09:00 terbutaline Allergy Verified 03/30/23 09:00 morphine AdvReac Mild Rash Verified 03/30/23 09:00 Review of Systems Constitutional Constitutional: Reports system reviewed and no additional complaints, except as documented Gastrointestinal Gastrointestinal: Reports system reviewed and no additional complaints, except as documented Genitourinary Genitourinary: Reports system reviewed and no additional complaints, except as documented Integumentary/Breasts Skin/Breast: Reports system reviewed and no additional complaints, except as documented Patient History Medical History Anemia (~1998) Celiac disease (~2007) Chicken pox Eczema (~1993) Endometriosis (~2007) GERD (gastroesophageal reflux disease) (~1998) Heavy menstrual period (~1985) Keloid scar Migraines Painful menstrual periods (~1986) Surgical History (Updated 09/23/21 @ 21:09 by Concetta Dickinson) Anesthesia H/O: History of bilateral tubal ligation History of hysterectomy (~2009) S/P laparoscopic procedure (~03/09/18) Scar tissue (~2011) Social History household members: spouse Smoking Status: Never smoker Smoking Status: Never smoker alcohol intake frequency: holidays/special occasions only Substance Use Type: does not use Exam Initial Vital Signs Initial Vital Signs: Vital Signs Temperature 98.1 F 03/30/23 09:00 Pulse Rate 79 03/30/23 09:00 Respiratory Rate 18 03/30/23 09:00 Blood Pressure 135/63 03/30/23 09:00 Pulse Oximetry 98 03/30/23 09:00 Oxygen Delivery Method Room Air 03/30/23 09:00 Resp Effort & Inspection: normal respiratory effort Cardio Rate: regular rate GI Other: Left adnexa pain. No left upper quadrant/right upper quadrant/right lower quadrant pain. Back/Spine/Pelvis Back: No CVA tenderness Skin General: no rashes or lesions noted Extrem General: normal to inspection and capillary refill normal Course Orders Ordered: ED Orders 03/30/23 09:19 US pelvic complete Stat Vital Signs Vital signs: Vital Signs - 8 hr 03/30/23 09:00 Temperature 98.1 F Pulse Rate 79 Respiratory Rate 18 Blood Pressure 135/63 Pulse Oximetry 98 Oxygen Delivery Method Room Air Medical Decision Making Imaging Data US - INPATIENT PHARMACIST: Radiologist's Impression: PROCEDURE:? US PELVIC COMPLETE ? INDICATIONS:? LEFT PELVIC PAIN ? TECHNIQUE:? Real-time scanning was performed of the pelvic organs, with image documentation.? Additional endovaginal scanning was necessary due to incomplete visualization of the adnexal and endometrial structures by transabdominal scanning.? ? COMPARISON:? [facility], US PELVIC COMPLETE, 11/10/2021, 9:24. ? FINDINGS:? ?? Uterus:? Uterus is surgically absent.? No abnormality is seen in vaginal cuff region. ? Ovaries:? The right ovary measures 2.4 x 1.5 x 1.4 cm, with a calculated ovarian volume of 2.7 cc. The left ovary measures 2.1 x 1.2 x 1.1 cm, with a calculated ovarian volume of 1.5 cc. The ovaries have a normal sonographic appearance.? Less than 12 follicles can be seen in each ovary.? No adnexal masses are seen. ? Other:? No pathologic free abdominal or pelvic fluid. ? ? IMPRESSION:? 1. Normal appearing bilateral ovaries.? No evidence of ovarian torsion.? No solid appearing ovarian lesion. ? 2. Prior hysterectomy.? No abnormality is seen in vaginal cuff region.? No pelvic free fluid. MDM Narrative Medical decision making narrative: Ultrasound shows no acute pathology. She has had a hysterectomy. I do feel that we can hold on any further radiologic studies for now. Her symptoms have been going on for the past several weeks or longer. No indication for emergent environmental service aide consultation. We will give her phone number for follow-up. Discharge Plan Departure Patient Disposition: Home Clinical Impression: Abdominal pain Instructions: DI for Abdominal Pain-Adult Activity Restrictions/Additional Instructions: Recommend that you continue to take all of your medications as directed. I also recommend you contact the environmental service aide provider at the number provided below for a follow-up. Return to the emergency department for new or worsening symptoms. Prescriptions: New hydrocodone-acetaminophen 5-325 mg tablet 1 tab PO Q6H PRN (Reason: pain) Qty: 10 0RF No Action CMP PracaSil See Rx Instructions .ROUTE .COMPLEX Qty: 100 0RF Rx Instructions: Apply small amount to scar every day for 3-6 months [facility] loratadine [Claritin] 5 mg/5 mL solution 5 mg PO ONCE omeprazole 40 mg capsule,delayed release(DR/EC) 40 mg PO DAILY ferrous sulfate [Feosol] 325 mg (65 mg iron) tablet 325 mg PO DAILY Referrals: Caroline Acosta MD [Physician] - Miscellaneous,DoctorMD [Primary Care Provider] - Stand Alone Forms: Patient Portal/API
[2023-03-30 10:35] VITALS: BP 138/71; PULSE 72; O2SAT 98
== END 2023-03-30 10:46 | disposition home or self-care (01) ==
PROVIDERS: Emergency Provider Emergency Medicine
DX: R10.2 Pelvic and perineal pain (principal)
CPT/HCPCS: 76830; 76856; 93975; 99283

== ENCOUNTER 2023-04-05 15:43 | Emergency (ER) | payer OTHER, SELFPAY ==
[2023-04-05 15:45] VITALS: BP 135/71; PULSE 85; RESP 18; TEMP 36.9; O2SAT 99; BMI 26.6
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
--- NOTE | 2023-04-05 16:59 | PC.NURSE ---
Pt A&Ox4, no neuro deficits. Pain and bruising to L eye
[2023-04-05 17:19] VITALS: BP 130/76; PULSE 80; RESP 16; O2SAT 100
== END 2023-04-05 17:19 | disposition home or self-care (01) ==
PROVIDERS: Emergency Provider Emergency Medicine
DX: S00.12XA Contusion of left eyelid and periocular area, initial encounter (principal); Y04.2XXA Assault by strike against or bumped into by another person, initial encounter; Y99.0 Civilian activity done for income or pay
CPT/HCPCS: 70486; 99283; 99284

== ENCOUNTER 2023-07-20 11:34 | Emergency (ER) | payer OTHER, SELFPAY ==
[2023-07-20] VITALS (10 sets, daily range): BP systolic 104–144; BP diastolic 55–78; PULSE 64–83; RESP 16–18; TEMP 37; O2SAT 98–100; BMI 25.8
[2023-07-20 12:20] LABS: Add Manual Diff / Slide Review NO; Basophils Absolute Auto 100 /uL (0-100); Basophils Percent Auto 1.1 % (0-2); Eosinophils Absolute Auto 100 /uL (0-450); Eosinophils Percent Auto 1.7 % (2-4); Hematocrit 37.2 % (36-46); Hemoglobin 11.9 g/dL (12.0-16.0); Lymphocytes Absolute Auto 1700 /uL (1100-4500); Lymphocytes Percent Auto 22.2 % (25-40); Mean Corpuscular HGB Conc 31.9 % (30-36); Mean Corpuscular Hemoglobin 23.4 PG (26-34); Mean Corpuscular Volume 73.2 fL (80-100); Monocytes Absolute Auto 500 /uL (0-900); Monocytes Percent Auto 6.9 % (3-14); Neutrophils Absolute Auto 5400 /uL (1500-7000); Neutrophils Percent Auto 68.1 % (50-75); Platelet Count 316 X10^3/uL (150-400); Red Blood Cell Count 5.07 X10^6/uL (4.0-5.2); Red Cell Distribution Width 15.5 % (11.6-14.8); White Blood Cell Count 7.9 X10^3/uL (4.5-11.0)
--- NOTE | 2023-07-20 12:28 | ED.GENADULT ---
HPI - General Adult General Chief complaint: Abdominal Pain Stated complaint: back pain, cramping, abd swelling Time Seen by Provider: 07/20/23 12:26 Source: patient Mode of arrival: Ambulatory History of Present Illness HPI narrative: 48-year-old female who was sent to the emergency department by her primary doctor for evaluation of 3 days of generalized abdominal pain and cramping. Has had a hysterectomy. No urinary symptoms. No change in bowel habits. No fevers. No recent travel. No recent antibiotics. Related Data Home Medications Medication Instructions Recorded Confirmed ferrous sulfate 325 mg (65 mg 325 mg PO DAILY 02/07/18 07/06/23 iron) tablet (Feosol) loratadine 5 mg/5 mL oral solution 5 mg PO ONCE 02/07/18 07/06/23 (Claritin) omeprazole 40 mg capsule,delayed 40 mg PO DAILY 02/07/18 07/06/23 release Previous Rx's Medication Instructions Recorded CMP PracaSil See Rx Instructions .Route 05/02/18 .COMPLEX #100 grams hydrocodone 5 mg-acetaminophen 325 1 tab PO Q6H PRN pain #10 tabs 03/30/23 mg tablet Allergies Allergy/AdvReac Type Severity Reaction Status Date / Time Sulfa (Sulfonamide Allergy Intermediate Hives Verified 07/20/23 11:59 Antibiotics) fluticasone [From Flonase] Allergy Verified 07/20/23 11:59 terbutaline Allergy Verified 07/20/23 11:59 morphine AdvReac Mild Rash Verified 07/20/23 11:59 Review of Systems Review of Systems ROS Unobtainable: All systems reviewed & are unremarkable except as noted in HPI and below Patient History Medical History (Updated 07/20/23 @ 14:36 by Omar Vinson DO) Eczema (~1993) Migraines Chicken pox Anemia (~1998) Celiac disease (~2007) GERD (gastroesophageal reflux disease) (~1998) Keloid scar Endometriosis (~2007) Surgical History (Updated 09/23/21 @ 21:09 by Concetta Dickinson) Anesthesia Scar tissue (~2011) S/P laparoscopic procedure (~03/09/18) History of bilateral tubal ligation H/O: History of hysterectomy (~2009) Social History household members: spouse Smoking Status: Never smoker Smoking Status: Never smoker alcohol intake frequency: holidays/special occasions only Substance Use Type: does not use Exam Initial Vital Signs Initial Vital Signs: Vital Signs Temperature 98.6 F 07/20/23 11:53 Pulse Rate 83 07/20/23 11:53 Respiratory Rate 18 07/20/23 11:53 Blood Pressure 133/59 L 07/20/23 11:53 Pulse Oximetry 98 07/20/23 11:53 Oxygen Delivery Method Room Air 07/20/23 11:53 HENMT Head: normal to inspection Resp Effort & Inspection: normal respiratory effort Cardio Rate: regular rate GI Inspection: normal to inspection and non-distended Palpation: soft and tender Skin General: no rashes or lesions noted Neuro General: patient alert, patient awake and patient oriented x3 Course Orders Ordered: ED Orders 07/20/23 12:00 Complete Blood Count AUTO DIFF Stat Comprehensive Metabolic Panel Stat Lipase Stat 07/20/23 12:28 CT abdomen pelvis w con Stat Ondansetron HCl (Ondansetron 4 Mg Odt) 4 mg PO NOW PRN PRN Reason: Nausea And Vomiting Ondansetron HCl (Ondansetron 4 Mg/2 Ml Inj) 4 mg IV NOW PRN PRN Reason: Nausea And Vomiting Vital Signs Vital signs: Vital Signs - 8 hr 07/20/23 11:53 07/20/23 12:13 07/20/23 12:15 Temperature 98.6 F Pulse Rate 83 69 Respiratory Rate 18 16 Blood Pressure 133/59 L 126/64 Pulse Oximetry 98 100 Oxygen Delivery Method Room Air Room Air 07/20/23 12:15 07/20/23 12:30 07/20/23 12:30 Temperature Pulse Rate 73 69 Respiratory Rate Blood Pressure 126/60 Pulse Oximetry 100 99 Oxygen Delivery Method 07/20/23 13:00 07/20/23 13:00 07/20/23 13:33 Temperature Pulse Rate 70 76 Respiratory Rate Blood Pressure 134/78 Pulse Oximetry 100 99 Oxygen Delivery Method 07/20/23 13:34 07/20/23 13:34 07/20/23 14:00 Temperature Pulse Rate 77 66 Respiratory Rate Blood Pressure 144/70 H Pulse Oximetry 100 99 Oxygen Delivery Method 07/20/23 14:01 07/20/23 14:01 Temperature Pulse Rate 64 Respiratory Rate Blood Pressure 109/55 L Pulse Oximetry 99 Oxygen Delivery Method Medical Decision Making Lab Data Lab results reviewed: Yes I reviewed the patient's lab results. 07/20/23 12:00 07/20/23 12:00 Labs: Lab Results 07/20/23 Range/Units 12:00 WBC 7.9 (4.5-11.0) X10^3/uL RBC 5.07 (4.0-5.2) X10^6/uL Hgb 11.9 L (12.0-16.0) g/dL Hct 37.2 (36-46) % MCV 73.2 L (80-100) fL MCH 23.4 L (26-34) PG MCHC 31.9 (30-36) % RDW 15.5 H (11.6-14.8) % Plt Count 316 (150-400) X10^3/uL Neut % (Auto) 68.1 (50-75) % Lymph % (Auto) 22.2 L (25-40) % [place] % (Auto) 6.9 (3-14) % Eos % (Auto) 1.7 L (2-4) % Baso % (Auto) 1.1 (0-2) % Neut # (Auto) 5400 (0624-1756) /uL Lymph # (Auto) 1700 (3886-3209) /uL [place] # (Auto) 500 (0-900) /uL Eos # (Auto) 100 (0-450) /uL Baso # (Auto) 100 (0-100) /uL Sodium 137 (137-145) mmol/L Potassium 4.1 (3.4-5.1) mmol/L Chloride 105 (98-107) mmol/L Carbon Dioxide 27 (22-32) mmol/L BUN 14 (7-17) mg/dL Creatinine 0.85 (0.52-1.04) mg/dL Estimated GFR > 60 (>60) mL/min BUN/Creatinine Ratio 16.5 (6-22) Glucose 93 (70-100) mg/dL Calcium 8.8 (8.4-10.2) mg/dL Total Bilirubin 0.6 (0.2-1.3) mg/dL AST TNP ALT 25 (<35) IU/L Alkaline Phosphatase 63 (38-126) U/L Total Protein 6.6 (6.3-8.2) g/dL Albumin 3.9 (3.5-5.0) g/dL Globulin 2.7 (1.7-4.1) g/dL Albumin/Globulin Ratio 1.4 (1.0-2.8) Lipase 80 (23-300) U/L Point of Care Testing Test Results Negative Urine Dip Bedside Urine Glucose Negative Bedside Urine Bilirubin - Negative Bedside Urine Ketone - Negative Urine Specific [place] 1.015 Bedside Urine Occult Blood - Negative Bedside Urine pH 7.5 Bedside Urine Protein - Negative Bedside Urine Urobilinogen - Negative Bedside Urine Nitrite - Negative Bedside Urine Leukocytes - Negative Esterase Point of care testing: Point of Care Testing Test Results Negative Urine Dip Bedside Urine Glucose Negative Bedside Urine Bilirubin - Negative Bedside Urine Ketone - Negative Urine Specific [place] 1.015 Bedside Urine Occult Blood - Negative Bedside Urine pH 7.5 Bedside Urine Protein - Negative Bedside Urine Urobilinogen - Negative Bedside Urine Nitrite - Negative Bedside Urine Leukocytes - Negative Esterase Imaging Data CT scan - abdomen/pelvis: Radiologist's Impression: PROCEDURE: CT ABDOMEN PELVIS W CON INDICATIONS: Generalized abdominal pain with distention TECHNIQUE: After the administration of intravenous contrast, axial sections acquired from the lung bases to the pubic symphysis. Coronal and sagittal reformats were performed. For radiation dose reduction, the following was used: automated exposure control, adjustment of mA and/or kV according to patient size. COMPARISON: [facility], CT, CT ABDOMEN PELVIS W CON, 09/17/2021, 20:11. FINDINGS: Image quality: Diagnostic. Lower Chest: No significant findings. ABDOMEN: Liver: No solid mass. Gallbladder: No radiopaque gallstones or wall thickening. Biliary ducts: No biliary dilation. Pancreas: No ductal dilation. Spleen: Size is within normal limits. Ill-defined focus of low attenuation within the posterior spleen measuring 6 mm. As well as a smaller adjacent area, unchanged likely representing small cysts or potentially hemangiomas. Adrenal Glands: No adrenal nodules. Kidneys and Ureters: No hydronephrosis. No solid mass. No complex renal cystic lesion which requires follow up. Stomach and Bowel: Normal colonic caliber, without significant wall thickening. Mild scattered stool without obstruction. Peritoneum: No abnormal intraperitoneal fluid. No free air. Ventral Wall: No hernia. Abdominal Nodes: No retroperitoneal or mesenteric adenopathy by size criteria. Vessels: Aorta and inferior vena cava are normal in size. PELVIS: Pelvic Organs: Unremarkable. Bladder: Unremarkable. Pelvic Nodes: No enlarged lymph nodes. Miscellaneous: No inguinal hernias are seen. Bones: No aggressive osseous abnormality. IMPRESSION: Mild scattered stool. No obstruction. Otherwise, no acute intra-abdominal or pelvic process identified. MDM Narrative Medical decision making narrative: CT scan is unremarkable. Labs unremarkable. She has a history of endometriosis. She is scheduled for another laparoscopic surgery in September. No indication for emergent surgical consultation today. No fevers. Discussed all this with her. She was given return precautions. She would rather just take Tylenol/ibuprofen at. She expressed understanding and agreement with plan. Discharge Plan Departure Patient Disposition: Home Clinical Impression: Abdominal pain Instructions: DI for Abdominal Pain-Adult Prescriptions: No Action CMP PracaSil See Rx Instructions .ROUTE .COMPLEX Qty: 100 0RF Rx Instructions: Apply small amount to scar every day for 3-6 months [facility] loratadine [Claritin] 5 mg/5 mL solution 5 mg PO ONCE omeprazole 40 mg capsule,delayed release(DR/EC) 40 mg PO DAILY ferrous sulfate [Feosol] 325 mg (65 mg iron) tablet 325 mg PO DAILY hydrocodone-acetaminophen 5-325 mg tablet 1 tab PO Q6H PRN (Reason: pain) Qty: 10 0RF Referrals: Nasreen Patel ARNP [Primary Care Provider] - Stand Alone Forms: Patient Portal/API
[2023-07-20 12:36] LABS: Alanine Aminotransferase 25 IU/L (<35); Albumin 3.9 g/dL (3.5-5.0); Albumin Globulin Ratio 1.4 (1.0-2.8); Alkaline Phosphatase 63 U/L (38-126); BUN Creatinine Ratio 16.5 (6-22); Bilirubin Total 0.6 mg/dL (0.2-1.3); Blood Urea Nitrogen 14 mg/dL (7-17); Calcium 8.8 mg/dL (8.4-10.2); Carbon Dioxide 27 mmol/L (22-32); Chloride 105 mmol/L (98-107); Estimated Glomerular Filt Rate > 60 mL/min (>60); Globulin 2.7 g/dL (1.7-4.1); Glucose 93 mg/dL (70-100); HEMOLYSIS < 15 (0-50); Lipase 80 U/L (23-300); Potassium 4.1 mmol/L (3.4-5.1); Sodium 137 mmol/L (137-145); Total Protein 6.6 g/dL (6.3-8.2)
[2023-07-21 15:08] LABS: Aspartate Aminotransferase 27 IU/L (14-36)
== END 2023-07-20 14:44 | disposition home or self-care (01) ==
PROVIDERS: Emergency Provider Emergency Medicine; PCP Nurse Practitioner
DX: R10.84 Generalized abdominal pain (principal)
CPT/HCPCS: 36415; 74177; 80053; 81003; 81025; 83690; 85025; 99284; Q9967

== ENCOUNTER 2023-08-11 10:25 | Day surgery (SDC) | payer OTHER, SELFPAY ==
[2023-08-08 11:52] VITALS: BMI 27.3
[2023-08-08 12:37] VITALS: BMI 27.3
[2023-08-11] VITALS (7 sets, daily range): BP systolic 102–121; BP diastolic 55–82; PULSE 75–88; RESP 12–18; TEMP 36.6–36.8; O2SAT 94–100; BMI 25.5
--- NOTE | 2023-08-11 | PATH_ITS ---
[facility] Accession Number: [id number] No. of containers..01 Tissue . 01 Material submitted: . ovary - LEFT FALLOPIAN TUBE AND OVEARY, RIGHT OVARY . 01 Diagnosis: Left Fallopian Tube and Ovary, Right Ovary; Left Salpingectomy and Bilateral Oophorectomies: Right ovary: Benign ovary with cystic follicles and few surface adhesions also present. Negative for atypia and malignancy. Left ovary: Benign ovary with hemorrhagic corpus luteum present. Negative for atypia and malignancy. Left fallopian tube without significant pathologic abnormalities. [facility] 08/14/2023 1453 Local . 01 Comment: There is no evidence of endometriosis, on retail field representative sections examined from the left fallopian tube, left ovary, and right ovary. . 01 Electronically signed: . Iona Veronica MD, Pathologist NPI- [id number] . 01 Gross description: . The specimen is received in formalin labeled with the patient's name, , and left salpingo-oophorectomy, right oophorectomy, and consists of an intact ovary measuring 2.8 x 2.4 x 1.3 cm and weighing 4 grams. The external surface of this ovary is inked blue, and sectioning reveals multiple thin, smooth-walled cystic structures ranging from 0.1 to 0.7 cm in greatest dimension filled with calixto serous fluid. The remaining cut surfaces are physiologic and unremarkable with no lesions identified. Also within the container is a fragmented presumed ovary and tube all weighing 3 grams and aggregating to 3.8 x 2.2 x 1.2 cm. Sectioning reveals the cut surfaces to range from calixto to yellow with no distinct lesions identified. Manager Integrated sections are submitted as follows: A1-A2: Manager Integrated intact ovary. A3-A4: Manager Integrated fragmented ovary and presumed fimbriae of tube. ([id number]) /ANSELMO 08/12/2023 2201 Local . 01 Pathologist provided ICD-10: N80.9, N85.9, R10.2 . 01 CPT . 670659 Specimen Comment: A courtesy copy of this report has been sent to [phone] Performed at: 01 [facility] [address] [address] [facility], [place], [place] [id number] MD Darius Yarbrough MD Phone: [phone]
[2023-08-11] MEDS: LACTATED RINGERS 1,000 ML 21 ML IV ×2 (10:40→13:44)
--- NOTE | 2023-08-11 11:47 | PM.PREOP ---
Pre-operative Note Interval Note History & Physical reviewed/Exam performed by Physician: Yes Changes to H&P: No
[2023-08-11] MEDS: BUPIVACAINE 0.5% (PF) 30 ML, EPINEPHrine 0.15 MG INJ (12:54)
[2023-08-11] MEDS: TRIAMCINOLONE 40 MG/ML VIAL 30 MG IM (12:57)
--- NOTE | 2023-08-11 13:03 | SUR.OPER ---
Lithotomy on padded OR bed, head on pillow, arms secured on padded arm boards at <90 degrees abduction. Legs secured in padded yellow fins stirrups.
--- NOTE | 2023-08-11 14:20 | P.OP_ITS ---
Operative Date/Time/Diagnoses Date of procedure: 08/11/23 Time of procedure: 14:20 Pre-op diagnosis: Lower abdominal pain with history of endometriosis and scar tissue, recurrent left ovarian cysts Post-op diagnosis: same Procedure & Clinicians Procedure: Laparoscopy with extensive lysis of adhesions and left salpingo oophorectomy with right oophorectomy Same procedure as scheduled: Yes Indications: Patient with recurring lower abdominal cramping that is worsening in frequency and length of time with a history of recurring left ovarian cysts. Patient with prior abdominal hysterectomy with retention of tubes and ovaries. Prior laparoscopy with right salpingectomy. Surgeon: Manjula Rose Click Yes if Unassisted: Yes Anesthesia Type: General Operative Notes Findings: Normal liver edge, no internal hernias, no obvious active endometriosis, normal appearing right ovary status post salpingectomy. Status post hysterectomy. Adhesion of the descending colon to the left sidewall and covering the left ovary and tube. Normal-appearing left ovary and tubal remnant. Closure Type: primary Specimen(s): other (Left tube and ovary and right ovary) Applied: catheter (Beebe removed at the end of the case) Estimated Blood Loss (mL): 25 Blood products transfused: none Procedure in detail: Patient was brought to the operating room where she underwent general anesthesia. [facility] and prepped and draped in usual sterile fashion. Pulsatile stockings were in place and functional. Warming was with a Alanna Hugger. The area of the incisions were injected with half percent Marcaine with epinephrine. An incision was made in the umbilicus with a scalpel and the Verres needle placed in the abdomen. Confirmation of correct placement of the needle was performed by withdrawing on the syringe and then allowing fluid to fall freely through the needle. The abdomen was insufflated to 3 L of CO2. A 5 mm trocar was placed under direct visualization. 2 other 5 mm trochars were placed in the right and left lower quadrant under direct visualization after incising the skin. There did not appear to be any damage with placement of the trocars. The abdomen was examined. Careful extensive dissection of the descending colon off the left sidewall and the vaginal cuff was undertaken. Eventually the left tube and ovary were discovered. Using the power seal the fallopian tube and most of the left ovary were removed. Due to the adhesions decision was made to leave a small amount of ovary where it was adhered to the intestine. Adequate hemostasis was noted. The right ovary was removed by cauterizing the infundibulopelvic ligament with the power seal. Adequate hemostasis was noted. An 11 mm trocar was placed suprapubically after injecting the skin with lidocaine. An Endo-Catch bag was placed in the abdomen and the left tube and ovary fragments as well as the right ovary were placed in the bag and removed intact. Adequate hemostasis noted. The CO2 was allowed to escape from the abdomen. The trochars were removed. Skin was closed with 4-0 monocryl. Because of her history of keloid formation the incisions were injected with Kenalog solution. The patient went to recovery room in stable condition. Complications: none Post-operative Condition: stable Disposition: same day surgery Plan for aftercare: Home when awake and stable.
--- NOTE | 2023-08-11 14:25 | SUR.PHASEI ---
Recieved to PACU after general anesthesia. Airway patent, self maintained. Report from BHARTI Brown and Dr Hinojosa.
[2023-08-11] MEDS: ONDANSETRON 4 MG/2 ML INJ IV ×2 (14:53→15:57)
--- NOTE | 2023-08-11 14:56 | SUR.PHASEI ---
When pt sat up to get dresses, pt became dizzy, pale, and nauseated. Zofran given. Fluids open. Report to Raphael Monique RN.
== END 2023-08-11 16:12 | disposition home or self-care (01) ==
PROVIDERS: PCP Nurse Practitioner; Referring Provider Specialist; Visit Provider Specialist
PROC: 0U5B4ZZ Destruction of Endometrium, Percutaneous Endoscopic Approach (ICD-10-PCS; CPT 58662; principal; 2023-08-11 11:30)
DX: N73.6 Female pelvic peritoneal adhesions (postinfective) (principal); N83.12 Corpus luteum cyst of left ovary; R10.2 Pelvic and perineal pain; L91.0 Hypertrophic scar; K21.9 Gastro-esophageal reflux disease without esophagitis; Z90.710 Acquired absence of both cervix and uterus
CPT/HCPCS: 58661; J0171; J1100; J1170; J1885; J2250; J2405; J3010

== ENCOUNTER 2024-09-22 18:24 | Emergency (ER) | payer OTHER, SELFPAY ==
[2024-09-22 18:28] VITALS: BP 118/93; PULSE 103; RESP 18; TEMP 37.2; O2SAT 97; BMI 26.6
--- NOTE | 2024-09-22 18:31 | DI.RAD.S_ITS ---
PROCEDURE: XR CHEST 1V INDICATIONS: cough TECHNIQUE: One view of the chest was acquired. COMPARISON: None. FINDINGS: Surgical changes and devices: None. Lungs and pleura: Lungs are clear. No pleural effusions or pneumothorax. Mediastinum: Mediastinal contours appear normal. Heart size is normal. Bones and chest wall: No suspicious bony lesions. Overlying soft tissues appear unremarkable. IMPRESSION: No acute cardiopulmonary abnormality is seen. Dictated by: Kimberly Brown M.D. on 09/22/2024 at 18:02 Approved by: Kimberly Brown M.D. on 09/22/2024 at 18:02
[2024-09-22 18:41] VITALS: BP 133/86; PULSE 96; O2SAT 96
[2024-09-22 19:00] VITALS: PULSE 88; O2SAT 98
--- NOTE | 2024-09-22 19:14 | ED_ITS ---
HPI - URI/Sore Throat General Chief Complaint: Upper Respiratory Symptoms Stated Complaint: Cold-Symptoms t-18 Time Seen by Provider: 09/22/24 18:43 Source: patient Mode of arrival: Ambulatory History of Present Illness HPI Narrative: 49-year-old female with sinus congestion and sinus pain since mid August, history of sinus infection, concerned that she might have infection. No recent change of cough or fevers or sinus pain or congestion. No chest pain or trouble breathing. No recent course of antibiotic. Related Data Home Medications Medication Instructions Recorded Confirmed loratadine 5 mg/5 mL oral solution 5 mg PO ONCE 02/07/18 08/31/23 (Claritin) omeprazole 40 mg capsule,delayed 40 mg PO DAILY 02/07/18 08/31/23 release erenumab-aooe 70 mg/mL 70 mg SUBCUT QMONTH 08/10/23 08/31/23 subcutaneous auto-injector (Aimovig Autoinjector) Previous Rx's Medication Instructions Recorded oxycodone 5 mg tablet 5 mg PO Q4H PRN pain #20 tabs 08/10/23 amoxicillin 875 mg-potassium 1 tab PO BID #20 tabs 09/22/24 clavulanate 125 mg tablet Allergies Allergy/AdvReac Type Severity Reaction Status Date / Time terbutaline Allergy tachypnea Verified 09/22/24 18:28 Sulfa (Sulfonamide AdvReac Intermediate Hives Verified 09/22/24 18:28 Antibiotics) morphine AdvReac Mild Rash Verified 09/22/24 18:28 fluticasone [From Flonase] AdvReac Hives Verified 09/22/24 18:28 Patient History Medical History (Updated 09/22/24 @ 19:50 by Nabil Nicole MD) Eczema (~1993) Migraines Chicken pox Anemia (~1998) Celiac disease (~2007) GERD (gastroesophageal reflux disease) (~1998) Keloid scar Endometriosis (~2007) Surgical History (Updated 08/08/23 @ 11:58 by Genoveva Modi RN) Anesthesia Scar tissue (~2011) S/P laparoscopic procedure (~03/09/18) History of bilateral tubal ligation H/O: History of hysterectomy (~2009) Social History household members: spouse Smoking Status: Never smoker alcohol intake: current Smoking Status: Never smoker alcohol intake frequency: holidays/special occasions only Exam Narrative Exam Narrative: GENERAL: Well-developed patient, in mild distress. HEAD: Atraumatic. Normocephalic. EYES: Pupils equal round and reactive. Extraocular motions intact. No scleral icterus. No injection or drainage. ENT: Nose without bleeding, purulent drainage. Throat without erythema, tonsillar hypertrophy or exudate. Airway patent. NECK: Trachea midline. Non tender CARDIOVASCULAR: Regular rate and rhythm without murmurs, gallops, or rubs. RESPIRATORY: Clear to auscultation. Breath sounds equal bilaterally. No wheezes, rales, or rhonchi. GASTROINTESTINAL: Abdomen soft, non-tender, nondistended. EXTREMITIES: No edema or joint tenderness. BACK: Nontender without deformity or crepitance. No flank tenderness. NEURO: AOx3. Motor functions grossly nonfocal SKIN: No rash or erythema of visible areas Initial Vital Signs Initial Vital Signs: Vital Signs Temperature 98.9 F 09/22/24 18:28 Pulse Rate 103 H 09/22/24 18:28 Respiratory Rate 18 09/22/24 18:28 Blood Pressure 118/93 H 09/22/24 18:28 Pulse Oximetry 97 09/22/24 18:28 Oxygen Delivery Method Room Air 09/22/24 18:28 Course Orders Ordered: ED Orders 09/22/24 18:31 XR chest 1V Stat 09/22/24 18:34 Covid-19 + FLU A/B + RSV - PCR Stat Discontinued Medications Amoxicillin/Clavulanate Potassium (Amoxicillin/Clav 875/125 Mg) 1 tab PO NOW ONE Stop: 09/22/24 19:42 Last Admin: 09/22/24 19:49 Dose: 1 tab Documented By: CORETTA Vital Signs Vital signs: Vital Signs - 8 hr 09/22/24 18:28 09/22/24 18:41 09/22/24 18:41 Temperature 98.9 F Pulse Rate 103 H 96 H Respiratory Rate 18 Blood Pressure 118/93 H 133/86 Pulse Oximetry 97 96 Oxygen Delivery Method Room Air 09/22/24 19:00 09/22/24 19:30 Temperature Pulse Rate 88 79 Respiratory Rate Blood Pressure Pulse Oximetry 98 96 Oxygen Delivery Method MDM - URI/Sore Throat Lab Data Attestation: I reviewed the patient's lab results. Lab results narrative: Swab positive for influenza A, negative for influenza B, negative COVID, negative RSV. Labs: Lab Results 09/22/24 Range/Units 18:34 SARS-CoV-2 (PCR) Negative (Negative) Influenza A (RT-PCR) Flu a positive H (NEGATIVE) Influenza B (RT-PCR) Flu b negative (NEGATIVE) RSV (PCR) Negative (Negative) Imaging Data Chest x-ray: Radiologist's Impression: [address] [address] XRay Report Signed Patient: Erika Rebolledo MR#: [id number] : 1975 Acct:[id number] Age/Sex: 49 / F Date of Service: 09/22/24 Loc: ED Accession Number: [id number] Procedure: XR chest 1V Ordering Provider: Nabil Nicole MD PROCEDURE: XR CHEST 1V INDICATIONS: cough TECHNIQUE: One view of the chest was acquired. COMPARISON: None. FINDINGS: Surgical changes and devices: None. Lungs and pleura: Lungs are clear. No pleural effusions or pneumothorax. Mediastinum: Mediastinal contours appear normal. Heart size is normal. Bones and chest wall: No suspicious bony lesions. Overlying soft tissues appear unremarkable. IMPRESSION: No acute cardiopulmonary abnormality is seen. Dictated by: Kimberly Brown M.D. on 09/22/2024 at 18:02 Approved by: Kimberly Brown M.D. on 09/22/2024 at 18:02 [facility] Narrative Medical decision making narrative: 49-year-old female with history of prior sinus infection, has one month duration of increasing sinus pain and congestion and postnasal drip. Not necessarily change in her recent occasional cough. Swab from triage positive for influenza a, though unclear onset duration of symptoms. We discussed Tamiflu, hold for now. She would be interested in course of the antibiotics given her history of sinus infections and long duration of symptoms and increasing sinus pain and pressure. Clinical diagnosis of sinusitis with prolonged symptoms. First dose of oral Augmentin now given, prescription for further antibiotics to take by mouth as an outpatient. Discussed supportive symptomatic care, Tylenol as needed for fever discomfort, drinking plenty of fluids. Recheck advised as an outpatient with regular doctor in the next few days if not improving. Return precautions discussed. Discharge Plan Departure Patient Disposition: Home Clinical Impression: Sinusitis, Influenza A Instructions: Sinusitis, Influenza Activity Restrictions/Additional Instructions: Ms Rebolledo, You described history of previous sinus infections, 1 month duration of sinus pain pressure and postnasal drip symptoms, with occasional cough not necessarily recently increased. Respiratory swab sent from triage was positive for influenza A, negative for influenza B and for RSV and for COVID. Chest x-ray showed no acute changes per Radiology interpretation report. We discussed Tamiflu antiviral for influenza a but there was no necessarily any change in your symptoms last 2-3 days, no effect Tamiflu on course of illness if more than 3 days of symptoms. You have prolonged sinus symptoms for 1 month now, history of prior sinus infections, interested in treatment with antibacterial medications for clinical sinusitis. First dose Augmentin antibiotic given in the emergency department, prescription sent for further antibiotics to your pharmacy. Take antibiotics as directed. Take Tylenol and or Motrin as needed for discomfort. Drink plenty of fluids. Consider recheck with your regular doctor if not improving in the next few days on these antibiotic regimen. Return to this/nearest emergency department for any change worsening symptoms or any concerns prior. Thank you for allowing our team to evaluate you today. Prescriptions: New amoxicillin-pot clavulanate 875-125 mg tablet 1 tab PO BID Qty: 20 0RF No Action loratadine [Claritin] 5 mg/5 mL solution 5 mg PO ONCE omeprazole 40 mg capsule,delayed release(DR/EC) 40 mg PO DAILY Aimovig Autoinjector 70 mg/mL auto-injector 70 mg SUBCUT QMONTH oxycodone 5 mg tablet 5 mg PO Q4H PRN (Reason: pain) Qty: 20 0RF Referrals: Nasreen Patel ARNP [Primary Care Provider] - Stand Alone Forms: Patient Portal/API/Survey
[2024-09-22 19:15] LABS: Influenza A - CEPHEID Flu A POSITIVE (NEGATIVE); Influenza B - CEPHEID Flu B NEGATIVE (NEGATIVE); Respiratory Syncytial Virus Negative (Negative)
[2024-09-22 19:17] LABS: COVID-19 CEPHEID 4-PLEX PCR Negative (Negative)
[2024-09-22 19:30] VITALS: PULSE 79; O2SAT 96
[2024-09-22] MEDS: AMOXICILLIN/CLAV 875/125 MG 1 TAB PO (19:49)
== END 2024-09-22 19:59 | disposition home or self-care (01) ==
PROVIDERS: Emergency Provider Emergency Medicine; PCP Nurse Practitioner
DX: J01.90 Acute sinusitis, unspecified (principal); J10.1 Influenza due to other identified influenza virus with other respiratory manifestations
CPT/HCPCS: 0241U; 71045; 99283

== ENCOUNTER 2024-11-01 13:01 | Emergency (ER) | payer OTHER, SELFPAY ==
[2024-11-01 13:14] VITALS: BP 138/78; PULSE 86; RESP 15; TEMP 36.8; O2SAT 99; BMI 27.7
--- NOTE | 2024-11-01 13:18 | DI.RAD.S_ITS ---
PROCEDURE: XR SHOULDER RT MIN 2V INDICATIONS: pain with reduced range of motion TECHNIQUE: 3 views of the shoulder were acquired. COMPARISON: None. FINDINGS: Bones: No fractures or dislocations. [id number] acromioclavicular joint osteoarthritic changes are seen. No suspicious bony lesions. Visualized ribs appear intact. Soft tissues: No suspicious soft tissue calcifications. IMPRESSION: No acute right shoulder fracture or dislocation. [id number] acromioclavicular joint osteoarthritis. Dictated by: Demetri Burgos M.D. on 11/01/2024 at 13:40 Approved by: Demetri Burgos M.D. on 11/01/2024 at 13:40
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
[2024-11-01] MEDS: KETOROLAC 30 MG/ML VIAL IM (16:17)
== END 2024-11-01 16:46 | disposition home or self-care (01) ==
PROVIDERS: Emergency Provider Physician Assistant; PCP Family Medicine
DX: S43.401A Unspecified sprain of right shoulder joint, initial encounter (principal); Y04.2XXA Assault by strike against or bumped into by another person, initial encounter; Y92.219 Unspecified school as the place of occurrence of the external cause; Y99.0 Civilian activity done for income or pay
CPT/HCPCS: 73030; 96372; 99283; J1885

== ENCOUNTER 2025-03-27 18:58 | Emergency (ER) | payer OTHER, SELFPAY ==
[2025-03-27 19:23] VITALS: BP 104/55; PULSE 76; RESP 15; TEMP 36.9; O2SAT 98; BMI 24.3
[2025-03-27 19:52] LABS: Add Manual Diff / Slide Review NO; Hematocrit 41.2 % (36-46); Hemoglobin 13.4 g/dL (12.0-16.0); Lymphocytes Absolute Auto 1600 /uL (1100-4500); Mean Corpuscular HGB Conc 32.6 % (30-36); Mean Corpuscular Hemoglobin 26.7 PG (26-34); Mean Corpuscular Volume 81.9 fL (80-100); Platelet Count 235 X10^3/uL (150-400)
[2025-03-27 20:00] LABS: Alanine Aminotransferase 32 IU/L (<35); Albumin 4.0 g/dL (3.5-5.0); Albumin Globulin Ratio 1.7 (1.0-2.8); Alkaline Phosphatase 69 U/L (38-126); Blood Urea Nitrogen 27 mg/dL (7-17); Calcium 8.9 mg/dL (8.4-10.2); Carbon Dioxide 24 mmol/L (22-32); Chloride 106 mmol/L (98-107); Estimated Glomerular Filt Rate > 60 mL/min (>60); Globulin 2.4 g/dL (1.7-4.1); Glucose 94 mg/dL (70-99); HEMOLYSIS < 15 (0-50); Potassium 3.7 mmol/L (3.4-5.1); Sodium 135 mmol/L (137-145); Total Protein 6.4 g/dL (6.3-8.2)
--- NOTE | 2025-03-28 00:29 | PC.NURSE ---
Patient called to have RN remove IV as they wish to leave ED. This RN to talk with patient, patient states no, I don't want to leave, I want my medication. I have a migraine and I need my medication now. Patient was updated about wait and patient states I need you to tell me how long I will have to wait. Patient told that wait times are difficult to give in and ED setting and we are doing our best to get patients back to be seen by Provider. Patient and her daughter to stay and be evaluated. 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
== END 2025-03-28 00:40 | disposition left against medical advice (07) ==
PROVIDERS: Emergency Provider Emergency Medicine; PCP Family Medicine
DX: G43.909 Migraine, unspecified, not intractable, without status migrainosus (principal)
CPT/HCPCS: 36415; 80053; 85025; 99283